=== PATIENT | female | born 1955 | race Hispanic/Latino ===

== ENCOUNTER → 2022-12-29 | Outpatient (CLI) | payer OTHER | END | disposition home or self-care (01) | LOC: RAH 08:30 | PROVIDERS: ATTEND Surgery | DX: K44.9 Diaphragmatic hernia without obstruction or gangrene (principal); K57.10 Diverticulosis of small intestine without perforation or abscess without bleeding; E66.01 Morbid (severe) obesity due to excess calories | CPT/HCPCS: 74240 ==

== ENCOUNTER → 2024-08-29 | Outpatient (CLI) | payer OTHER ==
--- NOTE | 2024-08-29 15:47 | HMCSR ---
APPROVED REPORT EXAM: Two-dimensional and M-mode echocardiogram with Doppler and color Doppler. INDICATION ICD: Non-rheumatic aortic valve stenosis I35.0 2D Dimensions RVDd3.5 cmLVEF(%)54.8 (>50%)LVED Vol(simp.)65.8 mL IVSd1.0 (0.7-1.1cm)FS(%)28 %LVES Vol(simp.)25.5 mL LVDd3.6 (3.8-5.6cm)LA (2D)3.6 (1.6-4.0cm)LVEF(%, simp.)61 % PWd0.9 (0.7-1.1cm)Ao Root(2D)2.8 (2.0-3.7cm)LA ESV INDEX (4CH)16.10 mL/m2 IVSs1.0 cmLVOT diam1.9 (1.8-2.4cm)LA ESV INDEX (2CH)26.00 mL/m2 LVDs2.6 (2.5-4.0cm) PWs1.2 cm M-Mode Dimensions EPSS0.8 cm LA (MM)3.7 (1.6-4.0cm) Ao Root(MM)3.0 (2.0-3.7cm) Aortic Valve AoV VTI0.4 mAo Mean GR11.0 mmHgLVOT VTI0.25 m SAEED (VMAX)1.7 cm2AVA (VTI) 1.7 cm2 Mitral Valve MV E Vmax72.3 cm/sDECEL Ldus938 ms MV A Vmax74.2 cm/sP 1/2 T90 ms E/A ratio1.0MVA (PHT)2.5 cm2 MR Max PG44 mmHg TDI E/E' Medial9.2E/E' Lateral8.1 Medial E' Peak V7.90 cm/sLateral E' Peak V8.90 cm/s Pulmonary Valve PV VTI0.27 mPV Mean GR4 mmHg Tricuspid Valve TR Vmax2.2 m/s TR Peak GR19.6 mmHg Left Ventricle The left ventricle is normal size. There is normal left ventricular wall thickness. LVEF is 60-65%. S tage I diastolic dysfunction. Right Ventricle The right ventricle is normal size. The right ventricular systolic function is normal. Atria The left atrium size is normal. The right atrium size is normal. Aortic Valve The aortic valve is normal in structure and opens well. Aortic valve has calcified nodular thickening . No aortic regurgitation is present. There is no aortic valvular stenosis. Mitral Valve The mitral valve is normal in structure. Mitral regurgitation is mild. There is no mitral valve steno sis. Tricuspid Valve The tricuspid valve is normal in structure. There is trace tricuspid valve regurgitation noted. Pulmonic Valve The pulmonary valve is normal in structure. There is no pulmonic valvular regurgitation. Great Vessels The aortic root is normal in size. The IVC is normal in size and collapses >50% with inspiration. Pericardium There is no pericardial effusion. Conclusion The left ventricle is normal size. LVEF is 60-65%. Mitral regurgitation is mild. There is trace tricuspid valve regurgitation noted.
== END | disposition home or self-care (01) ==
LOC: RAH 14:07
PROVIDERS: ATTEND Internal Medicine Cardiovascular Disease
DX: I08.0 Rheumatic disorders of both mitral and aortic valves (principal); I35.0 Nonrheumatic aortic (valve) stenosis
CPT/HCPCS: 93306

== ENCOUNTER 2025-01-16 16:45 | Emergency (ER) | payer OTHER ==
[~2025-01-16] VITALS: Ht 154.9 cm; Wt 94.3 kg
--- NOTE | 2025-01-16 17:16 | ERN ---
ED Note History of Present Illness Stated Complaint: LEFT HIP PAIN Chief Complaint: Hip Pain/Injury Time Seen by MD: 16:53 Dictation: HISTORY OF PRESENT ILLNESS: 69-year-old female with past medical history of osteoporosis, asthma, hypertension presented to ED with complaints of severe left hip pain since today morning. As per the patient she started physical therapy 3 days back and today while she was walking on a ramp, she she heard a crack on the left hip region and felt the sensation of giving away at left hip joint. She denies any trauma, fall. Currently she has 7 to 8/10 intensity pain. She consulted her primary care doctor today morning, her pelvis x-ray was unremarkable. At the time of presentation, her vitals are temperature 99, pulse rate 84 per m inute, respiratory rate 16 per minute, blood pressure 147/78, pulse oximetry 97% room air, Allergies: Coded Allergies: semaglutide (Unverified Allergy, Unknown, NAUSEA/VOMITING, 01/16/25) Past Medical History Past Medical History: Arthritis, Asthma, Depression, GERD, Hypertension Surgical History: Hysterectomy Surgical History Other: HEART CATH Review of System Dictation REVIEW OF SYSTEMS Positive for left hip pain CONSTITUTIONAL: Denies fevers, chills, or night sweats. No unintentional weight loss reported. ENT: No hearing loss, otalgia, otorrhea, rhinitis, rhinorrhea, hoarseness, or sore throat. CARDIOVASCULAR: Denies any exertional angina, dyspnea on exertion, orthopnea, paroxysmal nocturnal dyspnea, palpitations claudication. PULMONARY: Denies any shortness of breath, cough, phlegm / sputum, hemoptysis, pleuritic chest pain. SLEEP: Denies morning headaches, daytime somnolence or napping. Denies difficulty falling asleep, staying asleep, waking from sleep. Denies knowledge of snoring. GASTROINTESTINAL: Denies any type of dysphagia to either liquids or solids. Denies nausea, vomiting, abdominal pain, diarrhea, constipation, blood in stools . NEUROLOGICAL: Denies headache, motor weakness, sensory deficit, vertigo / spinning sensation, gait abnormalities, or tremors. GENITOURINARY: Denies frequency, urgency, nocturia, hematuria or incontinence, low urinary stream, straining to void, urinary intermittency or hesitancy ENDOCRINOLOGY: Denies polyuria, polydipsia, polyphagia or heat / cold intolerance. HEMATOLOGY: Denies thrombophilia / previous clots, or coagulopathy / bleeding disorders. ONCOLOGIC: Denies personal history of malignancy. DERMATOLOGIC: Denies rashes or pruritus. PSYCHIATRIC: Denies any suicidal or homicidal ideation. Denies hallucinations. Initial Vital Sign VS Vital Signs Date Time Temp Pulse Resp B/P (MAP) Pulse Ox O2 Delivery O2 Flow Rate FiO2 01/16/25 16:50 99.0 84 16 147/78 97 Room Air 0 01/16/25 18:00 21 Physical Exam Dictation PHYSICAL EXAM GENERAL APPEARANCE: Well nourished . Awake and alert. Oriented to time, place and person. No acute cardiopulmonary distress. HEENT: Head normocephalic , atraumatic. Sclera anicteric . Pupils are round and reactive. Extraocular movements intact . No conjunctival injection. No nasal congestion. No throat congestion .Oral mucosa moist. NECK: Supple. No JVD. No thyromegaly. No submental, submandibular, pre- /postauricular, occipital or supraclavicular lymphadenopathy. No carotid bruits. CHEST: Normal chest expansion. No Telemetry. LUNGS: Clear to auscultation bilaterally . No rales, rhonchi or any wheezing. Equal tactile fremitus. Resonant to percussion . CARDIOVASCULAR: Regular rate and rhythm. S1 and S2 normal. No rubs, murmurs or gallops. ABDOMEN: Soft, nontender, and nondistended. There is no rebound tenderness, voluntary guarding, or rigidity. No hepatosplenomegaly. Bowel sounds normal in all four quadrants . NEUROLOGICAL: Cranial nerves II-XII grossly intact. Motor is 5/5 in bilateral upper and lower extremities . No sensory deficits. EXTREMITIES: No edema, No cyanosis , No clubbing. Good capillary refill. Left anterior iliac spine tenderness +, limited range of movement at left hip due to pain. SKIN: No skin breakdown. No rashes or lesions . PSYCHIATRY: Normal affect .No auditory or visual hallucinations. Normal speech. No dysarthria. Results (Laboratory/Radiology) CT Scan Comment: PROCEDURE: PELVIS WO - CT PELVIS W/O CONTRAST CT PELVIS W/O CONTRAST HISTORY: Left hip pain, severe osteoporosis. COMPARISON: None TECHNIQUE: Multiple sequential axial images of the pelvis were obtained from the iliac crests through symphysis pubis. Patient was not given contrast through intravenous route. Oral contrast was not given. FINDINGS/IMPRESSION: Several diverticula along the distal colon compatible with diverticulosis coli. Uterus is absent. No significant degenerative joint disease, no evidence for fracture, dislocation, avascular necrosis, or joint effusion. DICTATED BY: DOUGLAS DENT MD DATE: 01/16/251736 ELECTRONICALLY SIGNED BY: DOUGLAS DENT MD DATE: 01/16/25 174 ED Course ED Course Orders Procedure Category Date Status Time Ketorolac PHA 01/16/25 Complete Tromethamine 30mg/Ml 17:30 Ct Pelvis W/O Contrast CT 01/16/25 Resulted 17:06 Current Medications Medications (Trade) Dose Ordered Sig/Jay Route PRN Reason Start Time Stop Time Status Last Admin Dose Admin Ketorolac Tromethamine (toRADol) 30 mg ONCE ONCE IM 01/16/25 17:30 01/16/25 17:31 DC 01/16/25 17:59 Vital Signs Date Time Temp Pulse Resp B/P (MAP) Pulse Ox O2 Delivery O2 Flow Rate FiO2 01/16/25 18:00 99.0 80 16 137/76 97 Room Air* 0 21 01/16/25 16:50 99.0 84 16 147/78 97 Room Air 0 Medical Decision Making MDM Differential diagnosis : Left femur/trochanter fracture, left hip joint ligament injury, osteoporosis, osteoarthritis Rationale: Tests considered and ordered secondary to shared decision making include: I will re-evaluate the patient after treatment and diagnostic exams have returned to determine whether they require further testing, can be safely discharged home, or need admission for further treatment and evaluation. Given the social determinants of health affecting care, including literacy, access to medical care, prescription drug management, and [id number] drugs, I will ensure that treatment plans are tailored accordingly. There are no social concerns with this patient. Risk of complication and/or morbidity or mortality of patient management: None Need for hospitalization: Patient does not meet criteria for hospitalization. Need for emergency major/minor surgery: No Prescription drug management Prescriptions will include symptomatic care Medications-Per medication reconciliation Previous outside records reviewed: Old ER visits. Patient's prior external medical records from other ER visits were reviewed by me as indicated. Prior testing and results from previous visits were reviewed. Prior tests were taken into account with medical decision making and resource utilization, independent historian/historians were used to obtain complete medical history. I independently interpreted the test that were performed, results were reviewed by me and considered findings on radiology. Medical management and examination interpretation discussions was done by me with other qualified healthcare professionals as indicated for the patient's care. Revaluation: Pelvis x-rays unremarkable. We have requested a CT pelvis. Patient was treated with injection Toradol stat-with moderate relief . Disposition : Discharge home DX & DISP Disposition: Discharge Departure Impression: Primary Impression: Sprain of left hip Additional Impressions: Left hip pain, Osteoporosis Condition: Stable Additional Instructions: Follow-up with primary care provider in 1-2 days Take medications as directed here in the emergency room. It is okay to continue home medications unless otherwise discussed during your visit in the emergency room today. Increase oral hydration. Return to your nearest emergency room if symptoms worsen or if there is no improvement. Call 911 if you need immediate assistance. Referrals: IRWIN ROJO MD (PCP) I performed a substantive portion of the visit. I have reviewed and personally made and approve the management plan that is documented in the notes by myself with MERLE/resident. I acknowledged full responsibility for the patient's management plan. SAKINA LEIVA MD Jan 16, 2025 17:16 BLAS LOMAS DO Jan 17, 2025 08:50
--- NOTE | 2025-01-16 17:41 | HMCIMG ---
CT PELVIS W/O CONTRAST HISTORY: Left hip pain, severe osteoporosis. COMPARISON: None TECHNIQUE: Multiple sequential axial images of the pelvis were obtained from the iliac crests through symphysis pubis. Patient was not given contrast through intravenous route. Oral contrast was not given. FINDINGS/IMPRESSION: Several diverticula along the distal colon compatible with diverticulosis coli. Uterus is absent. No significant degenerative joint disease, no evidence for fracture, dislocation, avascular necrosis, or joint effusion.
[2025-01-16] MEDS: ketOROlac 30MG VIAL (30MG/ML) IM ONE (17:59)
[2025-01-16 18:00] VITALS: BP 137/76; PULSE 80; RESP 16; TEMP 99; O2SAT 97
== END 2025-01-16 18:30 | disposition home or self-care (01) ==
LOC: EDH 16:45
DX: S73.102A Unspecified sprain of left hip, initial encounter (principal); M18.0 Bilateral primary osteoarthritis of first carpometacarpal joints; M25.552 Pain in left hip; I10 Essential (primary) hypertension; J45.909 Unspecified asthma, uncomplicated; Z90.710 Acquired absence of both cervix and uterus; W18.39XA Other fall on same level, initial encounter; Y93.01 Activity, walking, marching and hiking; Y92.89 Other specified places as the place of occurrence of the external cause; Y99.8 Other external cause status
CPT/HCPCS: 99285; 72192; 72170; 96372; J1885

== ENCOUNTER → 2025-01-16 | Outpatient (CLI) | payer OTHER ==
--- NOTE | 2025-01-16 11:48 | HMCIMG ---
PELVIS 1-2VWS HISTORY: Left hip pain COMPARISON: None TECHNIQUE: Frontal projection of the left hip was obtained. FINDINGS: There is no acute displaced fracture or dislocation. Degenerative changes are seen. IMPRESSION: 1. Findings as described above.
== END | disposition home or self-care (01) ==
LOC: RAH 11:10
PROVIDERS: ATTEND Internal Medicine
DX: M16.12 Unilateral primary osteoarthritis, left hip (principal); M25.552 Pain in left hip
CPT/HCPCS: 72170